=== PATIENT | male | born 1995 | race Asian ===

== ENCOUNTER 2021-08-20 21:22 | Emergency (ER) | payer BC ==
[~2021-08-20] VITALS: Ht 182.9 cm; Wt 87.3 kg
[2021-08-21] MEDS ORDERED: BENZ200C70 PO (07:09)
[2021-08-21 07:11] LABS: MONO SCRN NEGATIVE (NEGATIVE)
[2021-08-21 07:23] VITALS: BP 124/74
== END 2021-08-21 07:25 | disposition home or self-care (01) ==
LOC: M ED 21:22
DX: R05.9 Cough, unspecified (principal); R53.81 Other malaise; J06.9 Acute upper respiratory infection, unspecified